=== PATIENT | male | born 1975 | race Caucasian/White ===

== ENCOUNTER 2016-09-12 12:09 | Emergency (ER) | payer BC, OTHER ==
[2016-09-12 12:51] VITALS: BP 124/79; PULSE 64; RESP 18; TEMP 98.2; O2SAT 98
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
== END 2016-09-12 14:02 | disposition home or self-care (01) ==
LOC: CED 12:09
DX: S06.0X0A Concussion without loss of consciousness, initial encounter (principal); S43.101A Unspecified dislocation of right acromioclavicular joint, initial encounter; S69.92XA Unspecified injury of left wrist, hand and finger(s), initial encounter; R07.81 Pleurodynia; V18.0XXA Pedal cycle driver injured in noncollision transport accident in nontraffic accident, initial encounter; Y93.55 Activity, bike riding; Y92.488 Other paved roadways as the place of occurrence of the external cause
CPT/HCPCS: 71101-PO; 73030-PO; 73110-PO; G0463-PO